=== PATIENT | male | born 2000 | race Caucasian/White ===

== ENCOUNTER 2025-01-24 09:08 | Emergency (ER) | payer BC, OTHER | END 2025-01-24 09:54 | disposition home or self-care (01) | LOC: DL.ED 09:08 | DX: S83.8X2A Sprain of other specified parts of left knee, initial encounter (principal); X50.0XXA Overexertion from strenuous movement or load, initial encounter; Y93.89 Activity, other specified | CPT/HCPCS: 99283 ==